=== PATIENT | female | born 1940 | race Two or more races ===

== ENCOUNTER 2016-11-10 17:35 | Emergency (ER) | payer MEDICARE, MEDICAID ==
[~2016-11-10] VITALS: Ht 152.4 cm; Wt 39.5 kg
[~2016-11-10 17:35] MED LIST: AMLO10TA2 PO; CIPR-173 PO; GABA300C PO; INSLANTI SC; LEVO175T31 PO; LOSA100T27 PO; METF-316 PO; POLYDRO7 OP; PRAV20TA3 PO
[2016-11-10] MEDS ORDERED: METO25TA62 PO (18:53)
[2016-11-10] MEDS ORDERED: BACL20TA PO (18:54)
[2016-11-10] MEDS ORDERED: SODIUM CHLORIDE 0.9% 1,000 ML IV ONE (19:45)
[2016-11-10 19:56] LABS: Basophils # (auto) 0 uL; Basophils % (auto) 0.3 % (0.0-2.0); Eosinophils # (auto) 0.1 uL; Eosinophils % (auto) 0.9 % (0.0-7.0); Hematocrit 39.8 % (36.0-46.0); Hemoglobin 12.9 g/dL (12.2-16.2); Lymphocytes # (auto) 2.1 uL; Lymphocytes % (auto) 23.1 % (10.0-50.0); Mean Corpuscular Hemoglobin 31.4 pg (28.0-32.0); Mean Corpuscular Hgb Conc. 32.4 g/dL (32.0-36.0); Mean Corpuscular Volume 96.9 fL (80.0-100.0); Monocytes # (auto) 0.6 uL; Monocytes % (auto) 5.9 % (0.0-12.0); Neutrophils # (auto) 6.5 uL; Neutrophils % (auto) 69.8 % (37.0-80.0); Platelet Count (auto) 287 10^3/uL (140-450); White Blood Cell 9.3 10^3/uL (4.4-10.8)
[2016-11-10 20:21] LABS: INR 1.04 (0.9-1.15); Partial Thromboplastin Time 25.2 sec (22.64-33.71); Prothrombin Time 11.2 sec (9.37-12.3)
[2016-11-10 20:23] LABS: Albumin 3.4 g/dL (3.4-5.0); Anion Gap 14 (5-15); Aspartate Aminotransferase 10 U/L (15-37); BUN/Creatinine Ratio 21.3; Blood Urea Nitrogen 27 mg/dL (7-18); Calcium 9.1 mg/dL (8.5-10.1); Carbon Dioxide 19 mmol/L (21-32); Chloride 105 mmol/L (98-107); GFR African American 52 mL/min; GFR Non-African American 43 mL/min; Glucose 223 mg/dL (74-106); Magnesium 1.9 mg/dL (1.6-2.6); Potassium 4.9 mmol/L (3.5-5.1); Sodium 138 mmol/L (136-145)
[2016-11-10 20:25] LABS: Alkaline Phosphatase 95 U/L (45-117); Bilirubin, Total 0.3 mg/dL (0.2-1.0); Total Protein 7.8 g/dL (6.4-8.2)
[2016-11-10 21:23] LABS: Urine Bilirubin Negative (Negative); Urine Blood Negative /uL (Negative); Urine Color Yellow (Yellow); Urine Ketone Negative (Negative); Urine Nitrite Negative (Negative); Urine RBC <1 /hpf (0 - 4); Urine Urobilinogen Normal (Negative)
[2016-11-10 21:27] LABS: Urine Glucose 1+ mg/dL (Normal)
[2016-11-10 22:06] LABS: B-Type Natriuretic Peptide 640.21 pg/mL (0-100); Temperature: 23.1 C (20.0-25.0)
[2016-11-10 23:50] VITALS: BP 149/70
== END 2016-11-11 00:01 | disposition home or self-care (01) ==
LOC: ER 17:37
DX: G45.9 Transient cerebral ischemic attack, unspecified (principal); R53.1 Weakness; I25.10 Atherosclerotic heart disease of native coronary artery without angina pectoris; R51 Headache; I11.0 Hypertensive heart disease with heart failure; I50.9 Heart failure, unspecified; E11.9 Type 2 diabetes mellitus without complications; E03.9 Hypothyroidism, unspecified; Z90.49 Acquired absence of other specified parts of digestive tract; E78.5 Hyperlipidemia, unspecified; Z95.0 Presence of cardiac pacemaker
CPT/HCPCS: 36415; 51702; 70450; 71010; 80053; 80320; 81001; 82010; 82962; 83735; 83880; 84484; 85025; 85379; 85610; 85730; 93005; 96360; 96361; 99285; J7030

== ENCOUNTER 2017-08-16 13:07 | Inpatient (IN) | payer MEDICARE, MEDICAID ==
[~2017-08-16] VITALS: Ht 152.4 cm; Wt 47.3 kg
[~2017-08-16 13:07] MED LIST changes: +BACL20TA PO; -METF-316 PO; +METF-372 PO; +METO25TA62 PO
[2017-08-16 13:59] LABS: Basophils # (auto) 0 uL; Basophils % (auto) 0.4 % (0.0-2.0); Eosinophils # (auto) 0 uL; Eosinophils % (auto) 0.1 % (0.0-7.0); Hematocrit 39.1 % (36.0-46.0); Hemoglobin 12.8 g/dL (12.2-16.2); Lymphocytes % (auto) 17.1 % (10.0-50.0); Mean Corpuscular Hemoglobin 30.9 pg (28.0-32.0); Mean Corpuscular Hgb Conc. 32.9 g/dL (32.0-36.0); Mean Corpuscular Volume 93.9 fL (80.0-100.0); Monocytes # (auto) 0.3 uL; Neutrophils # (auto) 4.3 uL; Neutrophils % (auto) 76.4 % (37.0-80.0); Nucleated Red Blood Cells % 0.2 %; Platelet Count (auto) 259 10^3/uL (140-450); Red Blood Cells 4.16 10^6/uL (4.0-5.20); Red Cell Distribution Width 15.8 % (11.8-14.3); White Blood Cell 5.7 10^3/uL (4.4-10.8)
[2017-08-16 15:08] LABS: Albumin 3.1 g/dL (3.4-5.0); Anion Gap 21 (5-15); Calcium 8.2 mg/dL (8.5-10.1); Carbon Dioxide 14 mmol/L (21-32); Chloride 99 mmol/L (98-107); Glucose 144 mg/dL (74-106); Sodium 134 mmol/L (136-145)
[2017-08-16 15:20] LABS: Alanine Aminotransferase 40 U/L (13-56); Alkaline Phosphatase 112 U/L (45-117); Aspartate Aminotransferase 22 U/L (15-37); BUN/Creatinine Ratio 14.1; Bilirubin, Total 0.3 mg/dL (0.2-1.0); GFR African American 9 mL/min; GFR Non-African American 7 mL/min; Total Protein 7.3 g/dL (6.4-8.2)
[2017-08-16 15:22] LABS: Lactic Acid w/Reflex 7.6 mmol/L (0.4-2.0)
[2017-08-16 15:45] LABS: Blood Urea Nitrogen 86 mg/dL (7-18); Potassium 5.9 mmol/L (3.5-5.1)
[2017-08-16] MEDS ORDERED: SODIUM BICARBONATE 8.4% INJ 50ML SYRINGE IV ONE (16:00)
[2017-08-16] MEDS ORDERED: InsuLIN REG 1unit/0.01ml Soln (100units/ml) IV ONE (16:00)
[2017-08-16] MEDS ORDERED: FUROSEMIDE 20 MG/2 ML VIAL IV ONE (16:00)
[2017-08-16] MEDS ORDERED: DEXTROSE (50%) 50ML SYRG IV ONE (16:00)
[2017-08-16] MEDS ORDERED: CALCIUM GLUC 4.65meq/50ml D5AE 50 ML IV ONE (16:00)
[2017-08-16] MEDS ORDERED: SODIUM CHLORIDE 0.9% 1,000 ML IV ONE ×3 (16:36→17:00)
[2017-08-16] MEDS ORDERED: MORPHINE SULFATE 10 MG/ML INJ 1ML SDV IV PRN ×2 (17:00)
[2017-08-16] MEDS: InsuLIN REG 1unit/0.01ml Soln (100units/ml) SC SCH ×2 (17:00→23:02)
[2017-08-16] MEDS ORDERED: OSELTAMIVIR 75 MG CAP PO ONE (17:00)
[2017-08-16] MEDS: ACCU-CHEK COMFORT CURVE STRIP VI SCH ×2 (17:00→22:42)
[2017-08-16] MEDS ORDERED: DEXTROSE (50%) 50ML SYRG IV PRN (17:00)
[2017-08-16] MEDS ORDERED: LORazepam 0.5 MG TAB PO PRN (17:00)
[2017-08-16] MEDS ORDERED: NITROGLYCERIN 0.4 MG SL TAB SL PRN (17:00)
[2017-08-16 17:25] LABS: Urine Amorphous Crystal FEW /hpf (None Seen); Urine Bacteria NONE SEEN /hpf (None Seen); Urine Blood TRACE /uL (Negative); Urine Hyaline Cast FEW /lpf (0 - 2); Urine Specific Gravity 1.017 (1.001-1.035); Urine WBC 1 /hpf (0 - 5)
[2017-08-16] MEDS ORDERED: SODIUM BICARBONATE 8.4 % INJ 50ML VIAL IV ONE (17:30)
[2017-08-16] MEDS ORDERED: ALBUTEROL SULF 2.5 MG/0.5ML(0.5%) NEB SOLN NEB ONE (17:30)
[2017-08-16] MEDS: metroNIDAZOLE 500MG/100ML 100 ML IV SCH (17:32)
[2017-08-16] MEDS: PROMETHAZINE HCL 25 MG/ML 1ML IV PRN (17:44)
[2017-08-16] MEDS ORDERED: PANTOPRAZOLE 40 MG TAB PO ONE (17:45)
[2017-08-16] MEDS ORDERED: ARTIFICIAL TEARS 15ml OP PRN (18:00)
[2017-08-16] MEDS: DOXYCYCLINE HYC 100MG/250ML 250 ML IV SCH (18:35)
[2017-08-16] MEDS: SODIUM CHLORIDE 0.9% 1,000 ML IV SCH (19:43)
[2017-08-16] MEDS: PRAVASTATIN SODIUM 20 MG TAB PO SCH (19:58)
[2017-08-16 20:41] LABS: INR 1.05 (0.9-1.15); Prothrombin Time 11.4 sec (9.37-12.3)
[2017-08-16 20:47] LABS: BUN/Creatinine Ratio 14.2; Calcium 7.8 mg/dL (8.5-10.1); Potassium 4.3 mmol/L (3.5-5.1)
[2017-08-16 21:33] LABS: CRP High Sensitivity 1.69 mg/dL (< 0.3)
[2017-08-16 21:55] VITALS: BP 144/91
[2017-08-16] MEDS ORDERED: OSELTAMIVIR 75 MG CAP PO SCH (22:00)
[2017-08-16] MEDS: GABAPENTIN 100 MG CAP PO SCH (22:42)
[2017-08-17] MEDS: metroNIDAZOLE 500MG/100ML 100 ML IV SCH ×2 (00:08→07:26)
[2017-08-17 01:03] VITALS: BP 144/91
[2017-08-17] MEDS: SODIUM CHLORIDE 0.9% 1,000 ML IV SCH (02:46)
[2017-08-17 05:00] VITALS: BP 113/44
[2017-08-17] MEDS: DOXYCYCLINE HYC 100MG/250ML 250 ML IV SCH (05:04)
[2017-08-17] MEDS: PROMETHAZINE HCL 25 MG/ML 1ML IV PRN ×2 (05:55→11:40)
[2017-08-17] MEDS: LEVOTHYROXINE SODIUM 50 MCG TAB PO SCH (06:30)
[2017-08-17] MEDS: ACCU-CHEK COMFORT CURVE STRIP VI SCH ×4 (06:30→22:16)
[2017-08-17] MEDS: InsuLIN REG 1unit/0.01ml Soln (100units/ml) SC SCH ×4 (06:31→22:32)
[2017-08-17 06:40] LABS: Basophils # (auto) 0 uL; Basophils % (auto) 0.1 % (0.0-2.0); Eosinophils # (auto) 0 uL; Hemoglobin 11.6 g/dL (12.2-16.2); Lymphocytes # (auto) 0.5 uL; Lymphocytes % (auto) 5.6 % (10.0-50.0); Mean Corpuscular Hemoglobin 30.8 pg (28.0-32.0); Mean Corpuscular Hgb Conc. 32.3 g/dL (32.0-36.0); Mean Corpuscular Volume 95.4 fL (80.0-100.0); Monocytes # (auto) 0.7 uL; Monocytes % (auto) 7.2 % (0.0-12.0); Neutrophils # (auto) 8.6 uL; Neutrophils % (auto) 87.1 % (37.0-80.0); Nucleated Red Blood Cells % 0.2 %; Platelet Count (auto) 239 10^3/uL (140-450); Red Blood Cells 3.78 10^6/uL (4.0-5.20); Red Cell Distribution Width 15.7 % (11.8-14.3); White Blood Cell 9.8 10^3/uL (4.4-10.8)
[2017-08-17 07:01] LABS: Potassium 4.8 mmol/L (3.5-5.1)
[2017-08-17 07:02] LABS: Albumin 2.7 g/dL (3.4-5.0); BUN/Creatinine Ratio 13.7; Bilirubin, Total 0.3 mg/dL (0.2-1.0); Calcium 7.6 mg/dL (8.5-10.1); Total Protein 6.8 g/dL (6.4-8.2)
[2017-08-17 07:03] LABS: Cholesterol 106 mg/dL (< 200); HDL Cholesterol 29 mg/dL (40-59); LDL Cholesterol 57 mg/dL (< 100); Triglycerides 191 mg/dL (< 150)
[2017-08-17] MEDS: ALBUTEROL SULF 2.5 MG/0.5ML(0.5%) NEB SOLN NEB PRN ×2 (07:50→22:31)
[2017-08-17 09:00] VITALS: BP 100/36
[2017-08-17] MEDS: GABAPENTIN 100 MG CAP PO SCH (10:05)
[2017-08-17] MEDS: PANTOPRAZOLE 40 MG TAB PO SCH (10:06)
[2017-08-17] MEDS: ENOXAPARIN SOD 30 MG/0.3 ML SYRINGE SC SCH (10:08)
[2017-08-17] MEDS: SODIUM BICARBONATE 50ML VIAL 100 ML in SOD CHL 0.45% 1,000 ML IV SCH ×2 (12:14→23:12)
[2017-08-17] MEDS: PIPERACILLIN-TAZOB 2.25GM 50 ML IV SCH ×2 (12:20→17:36)
[2017-08-17] MEDS: Novasource Renal 8 Ounces PO SCH ×2 (12:30→18:00)
[2017-08-17 12:43] LABS: Lactic Acid w/Reflex 6.6 mmol/L (0.4-2.0)
[2017-08-17 13:48] LABS: Albumin 2.5 g/dL (3.4-5.0); BUN/Creatinine Ratio 15.1; Bilirubin, Total 0.2 mg/dL (0.2-1.0); Calcium 7.2 mg/dL (8.5-10.1); Potassium 4.9 mmol/L (3.5-5.1); Total Protein 6.2 g/dL (6.4-8.2)
[2017-08-17 14:20] VITALS: BP 111/50
[2017-08-17] MEDS: LINEZOLID 600MG/300ML 300 ML IV SCH (15:35)
[2017-08-17 16:00] VITALS: BP 129/49
[2017-08-17] MEDS: PRAVASTATIN SODIUM 20 MG TAB PO SCH (17:30)
[2017-08-17 20:00] VITALS: BP 126/33
[2017-08-17] MEDS ORDERED: PIPERACILLIN-TAZOB 2.25GM 50 ML IV ONE (23:57)
[2017-08-18] VITALS: BP 122/49
[2017-08-18] MEDS: PIPERACILLIN-TAZOB 2.25GM 50 ML IV SCH ×4 (00:07→18:10)
[2017-08-18] MEDS: LINEZOLID 600MG/300ML 300 ML IV SCH ×2 (02:31→15:22)
[2017-08-18 03:00] VITALS: BP 127/50
[2017-08-18 05:23] LABS: Basophils # (auto) 0 uL; Basophils % (auto) 0.1 % (0.0-2.0); Eosinophils # (auto) 0 uL; Hematocrit 28.6 % (36.0-46.0); Hemoglobin 9.5 g/dL (12.2-16.2); Lymphocytes # (auto) 0.7 uL; Lymphocytes % (auto) 7.3 % (10.0-50.0); Mean Corpuscular Hemoglobin 30.7 pg (28.0-32.0); Mean Corpuscular Hgb Conc. 33.1 g/dL (32.0-36.0); Mean Corpuscular Volume 92.7 fL (80.0-100.0); Monocytes # (auto) 0.8 uL; Monocytes % (auto) 8.2 % (0.0-12.0); Neutrophils # (auto) 8.5 uL; Neutrophils % (auto) 84.4 % (37.0-80.0); Platelet Count (auto) 202 10^3/uL (140-450); Red Blood Cells 3.08 10^6/uL (4.0-5.20); Red Cell Distribution Width 15.6 % (11.8-14.3); White Blood Cell 10.1 10^3/uL (4.4-10.8)
[2017-08-18 05:39] LABS: Albumin 2.2 g/dL (3.4-5.0); BUN/Creatinine Ratio 18.2; Bilirubin, Total 0.3 mg/dL (0.2-1.0); Calcium 7.1 mg/dL (8.5-10.1); Potassium 4.3 mmol/L (3.5-5.1); Total Protein 5.5 g/dL (6.4-8.2)
[2017-08-18] MEDS: LEVOTHYROXINE SODIUM 50 MCG TAB PO SCH (06:07)
[2017-08-18] MEDS: ACCU-CHEK COMFORT CURVE STRIP VI SCH ×4 (06:07→22:00)
[2017-08-18] MEDS: InsuLIN REG 1unit/0.01ml Soln (100units/ml) SC SCH ×4 (06:30→22:00)
[2017-08-18 08:00] VITALS: BP 126/53
[2017-08-18] MEDS: Novasource Renal 8 Ounces PO SCH ×3 (08:00→18:02)
[2017-08-18] MEDS: SODIUM BICARBONATE 50ML VIAL 100 ML in SOD CHL 0.45% 1,000 ML IV SCH ×3 (09:00→12:08)
[2017-08-18] MEDS: PANTOPRAZOLE 40 MG TAB PO SCH (10:13)
[2017-08-18] MEDS: ENOXAPARIN SOD 30 MG/0.3 ML SYRINGE SC SCH (10:13)
[2017-08-18 11:50] VITALS: BP 133/55
[2017-08-18] MEDS: SODIUM BICARBONATE 650 MG TAB PO SCH ×2 (12:15→22:40)
[2017-08-18 15:50] VITALS: BP 122/50
[2017-08-18 19:58] VITALS: BP 119/51
[2017-08-19] MEDS: PIPERACILLIN-TAZOB 2.25GM 50 ML IV SCH ×4 (00:06→17:30)
[2017-08-19] MEDS: LINEZOLID 600MG/300ML 300 ML IV SCH ×2 (03:39→15:00)
[2017-08-19] MEDS: ACETAMINOPHEN 500 MG TAB PO PRN ×2 (03:52→05:32)
[2017-08-19] MEDS: LEVOTHYROXINE SODIUM 50 MCG TAB PO SCH (05:42)
[2017-08-19] MEDS: SODIUM BICARBONATE 50ML VIAL 100 ML in SOD CHL 0.45% 1,000 ML IV SCH (05:43)
[2017-08-19] MEDS: ACCU-CHEK COMFORT CURVE STRIP VI SCH ×4 (06:23→22:00)
[2017-08-19] MEDS: InsuLIN REG 1unit/0.01ml Soln (100units/ml) SC SCH ×4 (06:23→22:00)
[2017-08-19 06:26] LABS: Basophils # (auto) 0 uL; Basophils % (auto) 0.1 % (0.0-2.0); Eosinophils # (auto) 0 uL; Eosinophils % (auto) 0.3 % (0.0-7.0); Hematocrit 26.3 % (36.0-46.0); Hemoglobin 9.2 g/dL (12.2-16.2); Lymphocytes # (auto) 1.7 uL; Lymphocytes % (auto) 16.7 % (10.0-50.0); Mean Corpuscular Hemoglobin 31.7 pg (28.0-32.0); Mean Corpuscular Volume 90.5 fL (80.0-100.0); Monocytes % (auto) 9.6 % (0.0-12.0); Neutrophils # (auto) 7.4 uL; Neutrophils % (auto) 73.3 % (37.0-80.0); Platelet Count (auto) 166 10^3/uL (140-450); Red Cell Distribution Width 15.4 % (11.8-14.3); White Blood Cell 10.1 10^3/uL (4.4-10.8)
[2017-08-19 06:47] LABS: BUN/Creatinine Ratio 20.1; Calcium 6.7 mg/dL (8.5-10.1); Potassium 3.1 mmol/L (3.5-5.1)
[2017-08-19] MEDS: Novasource Renal 8 Ounces PO SCH ×3 (08:00→18:00)
[2017-08-19 09:15] VITALS: BP 117/58
[2017-08-19] MEDS: PANTOPRAZOLE 40 MG TAB PO SCH (09:57)
[2017-08-19] MEDS: ENOXAPARIN SOD 30 MG/0.3 ML SYRINGE SC SCH (09:57)
[2017-08-19] MEDS: SODIUM BICARBONATE 650 MG TAB PO SCH ×2 (09:57→22:00)
[2017-08-19 12:00] VITALS: BP 122/52
[2017-08-19 15:58] VITALS: BP 123/57
[2017-08-19 20:00] VITALS: BP 134/64
[2017-08-20] VITALS: BP 132/58
[2017-08-20] MEDS: SODIUM BICARBONATE 50ML VIAL 100 ML in SOD CHL 0.45% 1,000 ML IV SCH (00:25)
[2017-08-20] MEDS: ACETYLCYSTEINE 20%(200MG/ML) SOL 4ML NEB SCH ×4 (00:28→18:00)
[2017-08-20] MEDS: IPRATROPIUM BROM 0.5 MG/2.5ML INH SOL NEB SCH ×5 (00:28→19:51)
[2017-08-20] MEDS: ALBUTEROL SULF 2.5 MG/0.5ML(0.5%) NEB SOLN NEB PRN (00:28)
[2017-08-20] MEDS: LINEZOLID 600MG/300ML 300 ML IV SCH ×2 (03:06→16:30)
[2017-08-20 04:00] VITALS: BP 123/53
[2017-08-20 05:37] LABS: Albumin 1.9 g/dL (3.4-5.0); BUN/Creatinine Ratio 19.1; Calcium 6.2 mg/dL (8.5-10.1)
[2017-08-20 05:39] LABS: Bilirubin, Total 0.4 mg/dL (0.2-1.0); Total Protein 5.3 g/dL (6.4-8.2)
[2017-08-20 05:41] LABS: Potassium 2.6 mmol/L (3.5-5.1)
[2017-08-20] MEDS ORDERED: SOD CHL 0.45% 1,000 ML IV SCH (06:00)
[2017-08-20] MEDS ORDERED: POTASSIUM CHL 10% (20 MEQ/15ML) 15ml ORAL SOLN ONE (06:33)
[2017-08-20] MEDS: PIPERACILLIN-TAZOB 2.25GM 50 ML IV SCH ×2 (06:44)
[2017-08-20] MEDS: LEVOTHYROXINE SODIUM 50 MCG TAB PO SCH (06:53)
[2017-08-20] MEDS: POTASSIUM CHL 10% (20 MEQ/15ML) 15ml ORAL SOLN GT SCH ×2 (06:53→09:31)
[2017-08-20] MEDS: ACCU-CHEK COMFORT CURVE STRIP VI SCH ×4 (07:16→22:00)
[2017-08-20] MEDS: InsuLIN REG 1unit/0.01ml Soln (100units/ml) SC SCH ×4 (07:53→22:00)
[2017-08-20 08:00] VITALS: BP 142/57
[2017-08-20 08:20] VITALS: BP 123/53
[2017-08-20] MEDS: Novasource Renal 8 Ounces PO SCH ×3 (09:24→18:00)
[2017-08-20] MEDS: SODIUM BICARBONATE 650 MG TAB PO SCH (09:30)
[2017-08-20] MEDS: ENOXAPARIN SOD 30 MG/0.3 ML SYRINGE SC SCH (09:31)
[2017-08-20] MEDS: PANTOPRAZOLE 40 MG TAB PO SCH (09:31)
[2017-08-20] MEDS: SOD CHL 0.45% 1,000 ML IV SCH (11:00)
[2017-08-20] MEDS ORDERED: ASPirin 81 mg TAB PO ONE (11:00)
[2017-08-20] MEDS ORDERED: guaiFENesin 200 MG/10 ML UD PO PRN (11:00)
[2017-08-20] MEDS: cefTRIAXone 1GM/10ml IVPUSH 10 ML IV SCH (11:48)
[2017-08-20 11:55] VITALS: BP 122/63
[2017-08-20 14:57] LABS: BUN/Creatinine Ratio 18.5; Calcium 6.2 mg/dL (8.5-10.1); Potassium 3.2 mmol/L (3.5-5.1)
[2017-08-20 15:51] VITALS: BP 131/65
[2017-08-20] MEDS: PRAVASTATIN SODIUM 20 MG TAB PO SCH (22:14)
[2017-08-20] MEDS: TEMAZEPAM 15 MG CAP PO PRN (22:14)
[2017-08-21] MEDS: IPRATROPIUM BROM 0.5 MG/2.5ML INH SOL NEB SCH ×4 (00:25→19:54)
[2017-08-21] MEDS: ACETYLCYSTEINE 20%(200MG/ML) SOL 4ML NEB SCH ×4 (00:26→19:55)
[2017-08-21] MEDS: LINEZOLID 600MG/300ML 300 ML IV SCH ×2 (03:09→15:03)
[2017-08-21 04:52] VITALS: BP 114/67
[2017-08-21 05:29] LABS: Basophils # (auto) 0 uL; Basophils % (auto) 0.1 % (0.0-2.0); Eosinophils # (auto) 0 uL; Eosinophils % (auto) 0.5 % (0.0-7.0); Hematocrit 25.1 % (36.0-46.0); Hemoglobin 8.5 g/dL (12.2-16.2); Lymphocytes # (auto) 1.6 uL; Lymphocytes % (auto) 15.9 % (10.0-50.0); Mean Corpuscular Hemoglobin 31.2 pg (28.0-32.0); Mean Corpuscular Hgb Conc. 33.9 g/dL (32.0-36.0); Mean Corpuscular Volume 92.2 fL (80.0-100.0); Monocytes # (auto) 0.8 uL; Monocytes % (auto) 8.5 % (0.0-12.0); Neutrophils # (auto) 7.5 uL; Nucleated Red Blood Cells % 0.1 %; Platelet Count (auto) 155 10^3/uL (140-450); Red Blood Cells 2.72 10^6/uL (4.0-5.20); Red Cell Distribution Width 14.6 % (11.8-14.3); White Blood Cell 9.9 10^3/uL (4.4-10.8)
[2017-08-21 05:58] LABS: BUN/Creatinine Ratio 18.4; Calcium 6.1 mg/dL (8.5-10.1)
[2017-08-21] MEDS: SOD CHL 0.45% 1,000 ML IV SCH (06:01)
[2017-08-21] MEDS: LEVOTHYROXINE SODIUM 50 MCG TAB PO SCH (06:02)
[2017-08-21] MEDS: ACCU-CHEK COMFORT CURVE STRIP VI SCH ×4 (06:02→21:36)
[2017-08-21] MEDS: InsuLIN REG 1unit/0.01ml Soln (100units/ml) SC SCH ×4 (06:02→21:36)
[2017-08-21] MEDS: ALBUTEROL SULF 2.5 MG/0.5ML(0.5%) NEB SOLN NEB PRN (07:25)
[2017-08-21] MEDS: Novasource Renal 8 Ounces PO SCH ×3 (08:52→17:45)
[2017-08-21] MEDS: cefTRIAXone 1GM/10ml IVPUSH 10 ML IV SCH (08:52)
[2017-08-21] MEDS: PANTOPRAZOLE 40 MG TAB PO SCH (08:53)
[2017-08-21] MEDS: ASPirin 81 mg TAB PO SCH (08:53)
[2017-08-21] MEDS: ENOXAPARIN SOD 30 MG/0.3 ML SYRINGE SC SCH (08:53)
[2017-08-21] MEDS: ACETAMINOPHEN 500 MG TAB PO PRN (08:59)
[2017-08-21 09:00] VITALS: BP 150/63
[2017-08-21 13:00] VITALS: BP 132/63
[2017-08-21] MEDS: HYDROcodone-ACET 5/325MG TAB PO PRN ×2 (13:47→21:35)
[2017-08-21] MEDS ORDERED: POTASSIUM CHL 10% (20 MEQ/15ML) 15ml ORAL SOLN PO ONE (15:15)
[2017-08-21 17:50] VITALS: BP 150/69
[2017-08-21] MEDS: PRAVASTATIN SODIUM 20 MG TAB PO SCH (21:35)
[2017-08-21] MEDS: TEMAZEPAM 15 MG CAP PO PRN (21:36)
[2017-08-21 22:00] VITALS: BP 153/68
[2017-08-22] MEDS: LINEZOLID 600MG/300ML 300 ML IV SCH (03:26)
[2017-08-22] MEDS: InsuLIN REG 1unit/0.01ml Soln (100units/ml) SC SCH ×5 (05:47→22:00)
[2017-08-22] MEDS: ACCU-CHEK COMFORT CURVE STRIP VI SCH ×5 (05:47→22:34)
[2017-08-22] MEDS: LEVOTHYROXINE SODIUM 50 MCG TAB PO SCH (05:48)
[2017-08-22 06:00] VITALS: BP 141/70
[2017-08-22] MEDS: HYDROcodone-ACET 5/325MG TAB PO PRN ×2 (06:44→16:27)
[2017-08-22] MEDS: ACETYLCYSTEINE 20%(200MG/ML) SOL 4ML NEB SCH ×3 (07:12→19:41)
[2017-08-22] MEDS: IPRATROPIUM BROM 0.5 MG/2.5ML INH SOL NEB SCH ×3 (07:16→19:41)
[2017-08-22 07:51] LABS: BUN/Creatinine Ratio 17.5
[2017-08-22 07:53] LABS: Potassium 2.8 mmol/L (3.5-5.1)
[2017-08-22 07:54] LABS: Calcium 5.7 mg/dL (8.5-10.1)
[2017-08-22] MEDS ORDERED: POTASSIUM CHL 20 Meq TABLET PO ONE (08:15)
[2017-08-22] MEDS ORDERED: CALCIUM GLUC 4.65meq/50ml D5AE 50 ML IV ONE (08:15)
[2017-08-22] MEDS ORDERED: POTASSIUM CHL 10% (20 MEQ/15ML) 15ml ORAL SOLN PO ONE (08:30)
[2017-08-22 09:00] VITALS: BP 146/70
[2017-08-22] MEDS ORDERED: POTASSIUM CHL 10% (20 MEQ/15ML) 15ml ORAL SOLN ONE (09:30)
[2017-08-22] MEDS: cefTRIAXone 1GM/10ml IVPUSH 10 ML IV SCH (09:50)
[2017-08-22] MEDS: ENOXAPARIN SOD 30 MG/0.3 ML SYRINGE SC SCH (09:51)
[2017-08-22] MEDS: PANTOPRAZOLE 40 MG TAB PO SCH (09:51)
[2017-08-22] MEDS: ASPirin 81 mg TAB PO SCH (09:52)
[2017-08-22] MEDS: Novasource Renal 8 Ounces PO SCH ×3 (10:06→18:15)
[2017-08-22] MEDS ORDERED: ACETYLCYSTEINE 10 %(100MG/ML) SOL 4ML ONE (12:25)
[2017-08-22 17:00] VITALS: BP 119/66
[2017-08-22 21:32] VITALS: BP 144/71
[2017-08-22] MEDS: PRAVASTATIN SODIUM 20 MG TAB PO SCH (22:34)
[2017-08-22] MEDS: LINEZOLID 600MG TABLET PO SCH (22:34)
[2017-08-22] MEDS: TEMAZEPAM 15 MG CAP PO PRN (23:52)
[2017-08-23] MEDS: IPRATROPIUM BROM 0.5 MG/2.5ML INH SOL NEB SCH ×4 (00:06→19:19)
[2017-08-23] MEDS: ACETYLCYSTEINE 20%(200MG/ML) SOL 4ML NEB SCH ×4 (00:06→19:19)
[2017-08-23 05:24] VITALS: BP 157/75
[2017-08-23 06:05] LABS: Basophils # (auto) 0 uL; Basophils % (auto) 0.1 % (0.0-2.0); Eosinophils # (auto) 0.1 uL; Eosinophils % (auto) 0.4 % (0.0-7.0); Hematocrit 27.8 % (36.0-46.0); Hemoglobin 9.5 g/dL (12.2-16.2); Lymphocytes # (auto) 1.5 uL; Lymphocytes % (auto) 11.6 % (10.0-50.0); Mean Corpuscular Hemoglobin 31.3 pg (28.0-32.0); Mean Corpuscular Volume 91.9 fL (80.0-100.0); Monocytes # (auto) 0.6 uL; Monocytes % (auto) 4.9 % (0.0-12.0); Neutrophils # (auto) 10.7 uL; Platelet Count (auto) 196 10^3/uL (140-450); Red Blood Cells 3.02 10^6/uL (4.0-5.20); Red Cell Distribution Width 14.9 % (11.8-14.3); White Blood Cell 12.9 10^3/uL (4.4-10.8)
[2017-08-23 06:16] LABS: Potassium 3.3 mmol/L (3.5-5.1)
[2017-08-23] MEDS: LEVOTHYROXINE SODIUM 50 MCG TAB PO SCH (06:18)
[2017-08-23] MEDS: ACCU-CHEK COMFORT CURVE STRIP VI SCH ×4 (06:19→21:33)
[2017-08-23 06:28] LABS: BUN/Creatinine Ratio 16.4; Calcium 6.1 mg/dL (8.5-10.1)
[2017-08-23] MEDS: InsuLIN REG 1unit/0.01ml Soln (100units/ml) SC SCH ×4 (06:32→21:34)
[2017-08-23] MEDS: Novasource Renal 8 Ounces PO SCH ×3 (08:00→18:15)
[2017-08-23 09:15] VITALS: BP 164/80
[2017-08-23] MEDS: HYDROcodone-ACET 5/325MG TAB PO PRN ×2 (09:21→18:33)
[2017-08-23] MEDS: cefTRIAXone 1GM/10ml IVPUSH 10 ML IV SCH (09:22)
[2017-08-23] MEDS: PANTOPRAZOLE 40 MG TAB PO SCH (09:22)
[2017-08-23] MEDS: LINEZOLID 600MG TABLET PO SCH (09:23)
[2017-08-23] MEDS: ENOXAPARIN SOD 30 MG/0.3 ML SYRINGE SC SCH (09:25)
[2017-08-23] MEDS: ASPirin 81 mg TAB PO SCH (09:26)
[2017-08-23 13:00] VITALS: BP 132/68
[2017-08-23] MEDS ORDERED: FUROSEMIDE 20 MG/2 ML VIAL IV ONE (13:00)
[2017-08-23] MEDS ORDERED: POTASSIUM CHL 20 Meq TABLET PO ONE (13:00)
[2017-08-23] MEDS: ceFAZolin 1GM/50ML 50 ML IV SCH ×2 (16:38→21:32)
[2017-08-23 17:00] VITALS: BP 151/73
[2017-08-23] MEDS: GABAPENTIN 300 MG CAP PO SCH (21:33)
[2017-08-23] MEDS: METOPROLOL TARTRATE 25 MG TAB PO SCH (21:33)
[2017-08-23] MEDS: PRAVASTATIN SODIUM 20 MG TAB PO SCH (21:33)
[2017-08-23 22:54] VITALS: BP 144/69
[2017-08-24] MEDS: IPRATROPIUM BROM 0.5 MG/2.5ML INH SOL NEB SCH ×4 (00:35→17:36)
[2017-08-24] MEDS: ACETYLCYSTEINE 20%(200MG/ML) SOL 4ML NEB SCH ×4 (00:35→17:36)
[2017-08-24 02:56] VITALS: BP 144/69
[2017-08-24 05:48] VITALS: BP 135/71
[2017-08-24] MEDS: ACCU-CHEK COMFORT CURVE STRIP VI SCH ×3 (06:06→17:00)
[2017-08-24] MEDS: LEVOTHYROXINE SODIUM 50 MCG TAB PO SCH (06:06)
[2017-08-24] MEDS: InsuLIN REG 1unit/0.01ml Soln (100units/ml) SC SCH ×3 (06:06→17:32)
[2017-08-24] MEDS: ceFAZolin 1GM/50ML 50 ML IV SCH ×2 (06:06→16:15)
[2017-08-24 06:22] LABS: Basophils # (auto) 0 uL; Basophils % (auto) 0.1 % (0.0-2.0); Eosinophils # (auto) 0.1 uL; Eosinophils % (auto) 1.3 % (0.0-7.0); Hematocrit 26.9 % (36.0-46.0); Lymphocytes # (auto) 1.2 uL; Lymphocytes % (auto) 10.3 % (10.0-50.0); Mean Corpuscular Hgb Conc. 33.6 g/dL (32.0-36.0); Mean Corpuscular Volume 92.4 fL (80.0-100.0); Monocytes # (auto) 0.7 uL; Monocytes % (auto) 6.5 % (0.0-12.0); Neutrophils # (auto) 9.3 uL; Neutrophils % (auto) 81.8 % (37.0-80.0); Platelet Count (auto) 228 10^3/uL (140-450); Red Blood Cells 2.91 10^6/uL (4.0-5.20); Red Cell Distribution Width 14.9 % (11.8-14.3); White Blood Cell 11.4 10^3/uL (4.4-10.8)
[2017-08-24 06:39] LABS: Potassium 3.4 mmol/L (3.5-5.1)
[2017-08-24 06:48] LABS: BUN/Creatinine Ratio 14.6
[2017-08-24 08:12] VITALS: BP 145/61
[2017-08-24] MEDS: Novasource Renal 8 Ounces PO SCH ×2 (10:27→12:26)
[2017-08-24] MEDS: ASPirin 81 mg TAB PO SCH (10:27)
[2017-08-24] MEDS: METOPROLOL TARTRATE 25 MG TAB PO SCH (10:28)
[2017-08-24] MEDS: PANTOPRAZOLE 40 MG TAB PO SCH (10:29)
[2017-08-24] MEDS: GABAPENTIN 300 MG CAP PO SCH (10:29)
[2017-08-24] MEDS: ENOXAPARIN SOD 30 MG/0.3 ML SYRINGE SC SCH (10:30)
[2017-08-24 11:41] VITALS: BP 147/69
[2017-08-24 15:00] VITALS: BP 147/69
[2017-08-24 16:17] VITALS: BP 143/65
== END 2017-08-24 18:00 | disposition hospice, home (50) | DRG 871 ==
LOC: ER 13:17 → TELE 13:18 → TELE-CENTR 21:51 → DOU IN ICU 08-17 14:44 → TELE-WESTW 08-20 17:51
PROVIDERS: ADMIT Internal Medicine; ATTEND Family Medicine
PROC: 0W9B3ZZ Drainage of Left Pleural Cavity, Percutaneous Approach (ICD-10-PCS; principal; 2017-08-20)
DX: A41.9 Sepsis, unspecified organism (principal); I21.4 Non-ST elevation (NSTEMI) myocardial infarction; N17.0 Acute kidney failure with tubular necrosis; J18.9 Pneumonia, unspecified organism; E44.0 Moderate protein-calorie malnutrition; E11.22 Type 2 diabetes mellitus with diabetic chronic kidney disease; E11.42 Type 2 diabetes mellitus with diabetic polyneuropathy; J90 Pleural effusion, not elsewhere classified; N18.6 End stage renal disease; I13.11 Hypertensive heart and chronic kidney disease without heart failure, with stage 5 chronic kidney disease, or end stage renal disease; E87.1 Hypo-osmolality and hyponatremia; J44.0 Chronic obstructive pulmonary disease with (acute) lower respiratory infection; L03.114 Cellulitis of left upper limb; E87.5 Hyperkalemia; T38.3X5A Adverse effect of insulin and oral hypoglycemic [antidiabetic] drugs, initial encounter; D64.9 Anemia, unspecified; E03.9 Hypothyroidism, unspecified; E78.5 Hyperlipidemia, unspecified; E87.6 Hypokalemia; F41.9 Anxiety disorder, unspecified; G47.00 Insomnia, unspecified; E86.0 Dehydration; R74.0 Nonspecific elevation of levels of transaminase and lactic acid dehydrogenase [LDH]; K44.9 Diaphragmatic hernia without obstruction or gangrene; F01.50 Vascular dementia, unspecified severity, without behavioral disturbance, psychotic disturbance, mood disturbance, and anxiety; I70.0 Atherosclerosis of aorta; Z51.5 Encounter for palliative care; H54.7 Unspecified visual loss; I25.10 Atherosclerotic heart disease of native coronary artery without angina pectoris; K21.9 Gastro-esophageal reflux disease without esophagitis; Z82.49 Family history of ischemic heart disease and other diseases of the circulatory system; Z83.3 Family history of diabetes mellitus; Z95.0 Presence of cardiac pacemaker; Z79.899 Other long term (current) drug therapy; Z90.49 Acquired absence of other specified parts of digestive tract; Z68.20 Body mass index [BMI] 20.0-20.9, adult
CPT/HCPCS: 36415; 36600; 70450; 71045; 74176; 76604; 76775; 76942; 80048; 80053; 80061; 81001; 82150; 82270; 82378; 82550; 82805; 82962; 83036; 83605; 83690; 84484; 85025; 85610; 85652; 86141; 87040; 87081; 87086; 87400; 87493; 93005; 93971; 94640; 94644; 96361; 96365; 96375; 97110; 97530; J0610; J0690; J1815; J2543; J3490

== ENCOUNTER 2019-10-18 15:34 | Inpatient (IN) | payer MEDICARE, MEDICAID ==
[~2019-10-18] VITALS: Ht 152.4 cm; Wt 49.0 kg
[~2019-10-18 15:34] MED LIST changes: +AMLO10TA13 PO; -AMLO10TA2 PO; -CIPR-173 PO; +LOSA-39 PO; -LOSA100T27 PO; -METO25TA62 PO; +METO25TA93 PO
[2019-10-18 16:57] LABS: Basophils # (auto) 0 10 ^3/uL (0-0.2); Basophils % (auto) 0.7 % (0.0-2.0); Eosinophils # (auto) 0.1 10 ^3/uL (0-0.8); Eosinophils % (auto) 1.5 % (0.0-7.0); Hematocrit 40.2 % (36.0-46.0); Hemoglobin 13.6 g/dL (12.2-16.2); Lymphocytes # (auto) 1.3 10 ^3/uL (0.4-5.4); Lymphocytes % (auto) 21.8 % (10.0-50.0); Mean Corpuscular Hemoglobin 32.1 pg (28.0-32.0); Mean Corpuscular Hgb Conc. 33.8 g/dL (32.0-36.0); Mean Corpuscular Volume 95.2 fL (80.0-100.0); Monocytes # (auto) 0.5 10 ^3/uL (0-1.3); Monocytes % (auto) 8.6 % (0.0-12.0); Neutrophils # (auto) 4.1 10 ^3/uL (1.6-8.6); Neutrophils % (auto) 67.4 % (37.0-80.0); Platelet Count (auto) 225 10^3/uL (140-450); Red Blood Cells 4.22 10^6/uL (4.0-5.20); Red Cell Distribution Width 14.5 % (11.8-14.3)
[2019-10-18 17:18] LABS: Albumin 3.1 g/dL (3.4-5.0); Calcium 8.3 mg/dL (8.5-10.1); Potassium 4.4 mmol/L (3.5-5.1)
[2019-10-18 17:24] LABS: BUN/Creatinine Ratio 21.3; Bilirubin, Total 0.3 mg/dL (0.2-1.0); Total Protein 7.7 g/dL (6.4-8.2)
[2019-10-18] MEDS ORDERED: SODIUM CHLORIDE 0.9% 1,000 ML IV ONE (17:41)
[2019-10-18] MEDS ORDERED: DEXTROSE (50%) 50ML SYRG IV PRN (19:30)
[2019-10-18] MEDS ORDERED: MORPHINE SULF INJ 2 MG/ML SYRINGE 1ML IV PRN ×2 (19:30)
[2019-10-18] MEDS ORDERED: DOCUSATE SOD 100 MG CAP PO PRN (19:30)
[2019-10-18] MEDS ORDERED: HYDROcodone-ACET 5/325MG TAB PO PRN (19:30)
[2019-10-18] MEDS ORDERED: ACETAMINOPHEN 500 MG TAB PO PRN (19:30)
[2019-10-18] MEDS ORDERED: ONDANSETRON HCL 4 MG/2 ML VIAL IV PRN (19:30)
[2019-10-18] MEDS ORDERED: NITROGLYCERIN 0.4 MG SL TAB SL PRN (19:30)
[2019-10-18 20:15] VITALS: BP 137/92
[2019-10-18] MEDS: GABAPENTIN 300 MG CAP PO SCH ×2 (20:24→20:26)
--- NOTE | 2019-10-18 20:26 | NUR ---
Telemetry admit from ER KELLIKARUNA admitted to Telemetry unit after SBAR received. Patient oriented to Montserrat Montgomery, primary RN, unit, room, bed, and unit policies regarding patient care and visiting hours. Patient now on continuous telemetry monitoring, tele box #55 and telemetry reading on arrival to unit is NSR 62. Patient placed on bedside oxygen, weighed by bedscale and encouraged to call if they need something. All questions and concerns addressed, patient verbalized understanding. Note:
--- NOTE | 2019-10-18 20:28 | NUR ---
NEURONTIN FOR 2199 AND 6AM ARE BEING HELD BECAUSE PT STATES IT MAKES HER DIZZY-AND AN ER NOTE FROM Sharon YANG STATED IT SHOULD BE HELD BECAUSE PT STATES IT IS MAKING HER DIZZY.
[2019-10-18 22:00] VITALS: BP 131/75
[2019-10-18] MEDS: ACCU-CHEK COMFORT CURVE STRIP VI SCH (22:00)
[2019-10-18] MEDS: InsuLIN REG 1unit/0.01ml Soln (100units/ml) SC SCH (22:00)
[2019-10-18 22:07] VITALS: BP 131/75
--- NOTE | 2019-10-18 22:17 | NUR ---
PATIENT UNABLE TO VERIFY MEDICATION LIST OF DOSAGE STRENGTH. WILL INFORM RN AND ATTEMPT TO OBTAIN CORRECT LIST IN AM.
--- NOTE | 2019-10-19 01:28 | NUR ---
PT UPSET THAT HER DAUGHTERS LEFT HER HERE. PT STATED THROUGH A SUPERVISOR CAB THAT SHE WANTS TO GO HOME IN THE AM.BED ALARM ON WITH FREQUENT NURSING CHECKS.
--- NOTE | 2019-10-19 04:44 | NUR ---
PT MOVED TO ROOM 286B WHICH HAS A SITTER.
[2019-10-19 05:00] VITALS: BP 140/75
[2019-10-19] MEDS: InsuLIN REG 1unit/0.01ml Soln (100units/ml) SC SCH ×4 (05:02→22:17)
[2019-10-19] MEDS: ACCU-CHEK COMFORT CURVE STRIP VI SCH ×4 (07:19→22:05)
--- NOTE | 2019-10-19 07:30 | NUR ---
Opening Shift Note Assumed care of patient, awake and alert. No S/S of distress/SOB or pain. Bed in lowest and locked position with side rails x2 and call light within reach. Instructed on POC and to call for assist PRN, will continue to monitor for changes Q1hr and PRN.
[2019-10-19 08:00] VITALS: BP 149/71
[2019-10-19 09:00] VITALS: BP 149/71
[2019-10-19 09:31] LABS: Basophils # (auto) 0.1 10 ^3/uL (0-0.2); Basophils % (auto) 1.2 % (0.0-2.0); Eosinophils # (auto) 0.2 10 ^3/uL (0-0.8); Eosinophils % (auto) 2.3 % (0.0-7.0); Hemoglobin 13.1 g/dL (12.2-16.2); Lymphocytes # (auto) 2.5 10 ^3/uL (0.4-5.4); Lymphocytes % (auto) 32.5 % (10.0-50.0); Mean Corpuscular Hemoglobin 31.2 pg (28.0-32.0); Mean Corpuscular Hgb Conc. 32.7 g/dL (32.0-36.0); Mean Corpuscular Volume 95.4 fL (80.0-100.0); Monocytes # (auto) 0.7 10 ^3/uL (0-1.3); Monocytes % (auto) 9.5 % (0.0-12.0); Neutrophils # (auto) 4.2 10 ^3/uL (1.6-8.6); Neutrophils % (auto) 54.5 % (37.0-80.0); Nucleated Red Blood Cells % 0.1 %; Platelet Count (auto) 197 10^3/uL (140-450); Red Blood Cells 4.19 10^6/uL (4.0-5.20); Red Cell Distribution Width 14.6 % (11.8-14.3); White Blood Cell 7.6 10^3/uL (4.4-10.8)
[2019-10-19 09:53] LABS: Albumin 2.8 g/dL (3.4-5.0); Calcium 8.3 mg/dL (8.5-10.1); Potassium 4.2 mmol/L (3.5-5.1)
[2019-10-19 09:59] LABS: Bilirubin, Total 0.4 mg/dL (0.2-1.0); Total Protein 7.1 g/dL (6.4-8.2)
--- NOTE | 2019-10-19 10:00 | NUR ---
WOUND CARE NOTE: IN TO SEE PATIENT AT THIS TIME PER WOUND CARE CONSULT REQUEST. PATIENT ADMITTED TO [facility] WITH DIAGNOSIS OF TIA/CVA. CURRENT BISHOP SCORE IS 12. PATIENT WAS NOTED UPON ADMIT TO HAVE SKIN INTEGRITY ISSUE TO THE SACRUM. WOUND PHOTOS TAKEN AT THAT TIME BY BEDSIDE NURSE FOR REFERENCE. PATIENT IS NOTED TO BE MAX ASSIST FOR HER ADL'S, SHE HAS A SITTER AT BEDSIDE. PATIENT IS VERY THIN, WEIGHING ONLY 49.8 KG. SHE HAS VERY PROMINENT BONY PROMINENCES. PATIENT HAS PINK COLLAGEN SCARS NOTED TO RIGHT/LEFT/MEDIAL SACRUM. SKIN INTACT, PINK. SKIN IS BLANCHABLE. SHE HAS AN OPTIFOAM GENTLE SACRAL DRESSING PREVENTATIVE IN PLACE. SPECIALTY AIR MATTRESS HAS BEEN ORDERED. PATIENT TO BE PLACED PENDING DELIVERY BY [facility]. NO OTHER SKIN ISSUES SEEN AT THIS TIME. RECOMMEND: FREQUENT TURN SCHEDULE Q 2 HOURS,PRN CONDITION PERMITS, WITH PRESSURE REDISTRIBUTION USING PILLOWS/WEDGES, BID/PRN APPLICATION WITH MOISTURE BARRIER CREAM, OPTIFOAM GENTLE SACRAL DRESSING, SPECIALTY AIR MATTRESS, DIETARY CONSULT FOR LOW BISHOP, SKIN/WOUND CARE PLAN, CONTINUED MONITORING BY WOUND CARE TEAM. Addendum: 10/19/19 at 1227 by Cynthia Rg RN Amended: Links added.
[2019-10-19] MEDS: ASPirin 81 mg TAB PO SCH (11:13)
[2019-10-19] MEDS: FAMOTIDINE 20 MG TAB PO SCH (11:13)
[2019-10-19] MEDS: METOPROLOL SUCCINATE XL 50 MG TAB PO SCH (11:14)
[2019-10-19 13:00] VITALS: BP 146/71
[2019-10-19] MEDS: GABAPENTIN 300 MG CAP PO SCH ×2 (13:44→22:05)
[2019-10-19 17:00] VITALS: BP 118/53
[2019-10-19] MEDS ORDERED: PRAVASTATIN SODIUM 20 MG TAB PO SCH (18:00)
--- NOTE | 2019-10-19 19:25 | NUR ---
Opening Shift Note Assumed care of patient, awake and alert. No S/S of distress/SOB or pain. Instructed on POC and to call for assist PRN, will continue to monitor for changes Q1hr and PRN. PATIENT RESTING IN BED SITTER AT BEDSIDE, BED IN LOWEST POSITION, SIDE RALES UP X2, AND CALL LIGHT WITHIN REACH.
[2019-10-19 20:30] VITALS: BP 107/52
[2019-10-19] MEDS: ATORVASTATIN 20 MG TAB PO SCH (22:05)
[2019-10-20 05:00] VITALS: BP 126/60
[2019-10-20] MEDS: GABAPENTIN 300 MG CAP PO SCH ×3 (05:52→22:35)
[2019-10-20] MEDS: InsuLIN REG 1unit/0.01ml Soln (100units/ml) SC SCH ×4 (06:44→22:36)
[2019-10-20] MEDS: LEVOTHYROXINE SODIUM 112 MCG TAB PO SCH (06:44)
[2019-10-20] MEDS: ACCU-CHEK COMFORT CURVE STRIP VI SCH ×4 (06:44→22:00)
[2019-10-20 06:53] LABS: Folate (Folic Acid) > 24.00 ng/mL (5.38-24)
--- NOTE | 2019-10-20 07:04 | NUR ---
Opening Shift Note: Assumed care of patient, awake and alert x3. No S/S of distress/SOB or pain. Bed in lowest locked position, side rails up x 2, call light within reach. Patient instructed on POC and to call for assist PRN, will continue to monitor for changes Q1hr and PRN. Addendum: 10/20/19 at 1036 by KALLI ORDONEZ RN RN Sitter at bedside for patient safety
--- NOTE | 2019-10-20 08:14 | NUR ---
PER DR. GARCIA REQUEST FAMILY IS CALLED AND UPDATED ON POC.
[2019-10-20 09:00] VITALS: BP 122/54
--- NOTE | 2019-10-20 09:45 | NUR ---
PATIENT IS TURNED AT THIS TIME. WILL CONTINUE TO MONITOR.
[2019-10-20] MEDS: METOPROLOL SUCCINATE XL 50 MG TAB PO SCH (09:55)
[2019-10-20] MEDS: FAMOTIDINE 20 MG TAB PO SCH (09:55)
[2019-10-20] MEDS: ASPirin 81 mg TAB PO SCH (09:55)
[2019-10-20 13:00] VITALS: BP 126/65
--- NOTE | 2019-10-20 13:31 | NUR ---
PATIENT IS TURNED AND CHANGED AT THIS TIME.
--- NOTE | 2019-10-20 13:34 | NUR ---
DR. MCDONALD: DR. KOENIG AT BEDSIDE. DISCUSSED POC WITH PATIENT.
--- NOTE | 2019-10-20 13:35 | NUR ---
NUTRITION ASSESSMENT NOTES Please refer to link notes of nutrition screen form filed under the intervention section of the plan of care for further details. Est. Energy Needs: 0556-6520 kcal ( 25-30 kcal/kg BW). Est. Protein Needs: 60-76 gms/day ( 1.2-1.5 gms/kg BW). Will continue to monitor pertinent labs and reassess nutrient need prn Addendum: 10/20/19 at [address] Amended: Links added.
--- NOTE | 2019-10-20 13:45 | NUR ---
PATIENT OFF UNIT FOR CT SCAN
--- NOTE | 2019-10-20 14:15 | NUR ---
PATIENT BACK TO ROOM. NO S/S OF PAIN OR DISTRESS NOTED.
[2019-10-20 18:19] VITALS: BP 139/66
[2019-10-20] MEDS: Glucerna Carbsteady SHAKE Vanilla 8oz PO SCH (18:32)
--- NOTE | 2019-10-20 19:04 | NUR ---
CLOSING NOTE: PATIENT RESTING IN BED. NO S/S OF PAIN, SOB OR DISTRESS AT THIS TIME. FAMILY AT BEDSIDE. SITTER AT BEDSIDE FOR PATIENT SAFETY. CARE ENDORSED TO NOC RN.
--- NOTE | 2019-10-20 19:20 | NUR ---
Opening Shift Note Assumed care of patient, awake and alert. No S/S of distress/SOB or pain. Instructed on POC and to call for assist PRN, will continue to monitor for changes Q1hr and PRN. PATIENT RESTING IN BED, FAMILY AND SITTER AT BEDSIDE, BED IN LOWEST POSITION, SIDE RALES UP X2, CALL LIGHT AT HER SIDE WITHIN REACH.
--- NOTE | 2019-10-20 19:25 | NUR ---
PT FAMILY REQUESTING DNR STATUS GRANDSON REQUESTING DNR SAYING THAT HIS MOTHER AND AUNT WOULD LIKE TO PLACE PATIENT ON DNR STATUS. I INFORMED FAMILY I WILL PUT IN A CONSULT ORDER FOR FURTHER INFORMATION PATIENTS DAUGHTERS CAN BE CONTACTED AT [phone] (KOBE) AND [phone] (MICHAEL).
[2019-10-20 20:15] VITALS: BP 136/68
[2019-10-20 22:00] VITALS: BP 139/68
[2019-10-20] MEDS: ATORVASTATIN 20 MG TAB PO SCH (22:35)
[2019-10-21 05:45] LABS: Basophils # (auto) 0.1 10 ^3/uL (0-0.2); Basophils % (auto) 0.9 % (0.0-2.0); Eosinophils # (auto) 0.2 10 ^3/uL (0-0.8); Eosinophils % (auto) 3.3 % (0.0-7.0); Hematocrit 40.4 % (36.0-46.0); Hemoglobin 13.6 g/dL (12.2-16.2); Lymphocytes # (auto) 1.7 10 ^3/uL (0.4-5.4); Lymphocytes % (auto) 25.4 % (10.0-50.0); Mean Corpuscular Hemoglobin 32.2 pg (28.0-32.0); Mean Corpuscular Hgb Conc. 33.7 g/dL (32.0-36.0); Mean Corpuscular Volume 95.5 fL (80.0-100.0); Monocytes # (auto) 0.6 10 ^3/uL (0-1.3); Monocytes % (auto) 9.7 % (0.0-12.0); Neutrophils % (auto) 60.7 % (37.0-80.0); Nucleated Red Blood Cells % 0.1 %; Platelet Count (auto) 188 10^3/uL (140-450); Red Blood Cells 4.23 10^6/uL (4.0-5.20); Red Cell Distribution Width 14.8 % (11.8-14.3); White Blood Cell 6.7 10^3/uL (4.4-10.8)
[2019-10-21 05:53] LABS: INR 1.07 (0.9-1.15)
[2019-10-21 05:58] LABS: Anion Gap 2 (5-15); Blood Urea Nitrogen 26 mg/dL (7-18); Calcium 8.3 mg/dL (8.5-10.1); Carbon Dioxide 28 mmol/L (21-32); Chloride 110 mmol/L (98-107); Glucose 97 mg/dL (74-106); Potassium 4.6 mmol/L (3.5-5.1); Sodium 140 mmol/L (136-145)
[2019-10-21 06:00] VITALS: BP 118/43
[2019-10-21 06:03] LABS: GFR African American 51 mL/min; GFR Non-African American 42 mL/min
[2019-10-21] MEDS: GABAPENTIN 300 MG CAP PO SCH ×2 (06:25→13:29)
[2019-10-21] MEDS: LEVOTHYROXINE SODIUM 112 MCG TAB PO SCH (06:25)
[2019-10-21] MEDS: InsuLIN REG 1unit/0.01ml Soln (100units/ml) SC SCH ×3 (07:00→17:45)
[2019-10-21] MEDS: ACCU-CHEK COMFORT CURVE STRIP VI SCH ×3 (07:08→16:20)
--- NOTE | 2019-10-21 07:15 | NUR ---
Opening Shift Note REceived report from Rianna ARNOLD. Assumed care of patient, asleep. No S/S of distress/SOB or pain. NOted sitter at bedside. Instructed on POC and to call for assist PRN, will continue to monitor for changes Q1hr and PRN.
[2019-10-21] MEDS: Glucerna Carbsteady SHAKE Vanilla 8oz PO SCH ×3 (07:42→17:44)
[2019-10-21 08:00] VITALS: BP 118/43
[2019-10-21 09:00] VITALS: BP 131/58
[2019-10-21] MEDS: FAMOTIDINE 20 MG TAB PO SCH (09:16)
[2019-10-21] MEDS: ASPirin 81 mg TAB PO SCH (09:16)
[2019-10-21] MEDS: METOPROLOL SUCCINATE XL 50 MG TAB PO SCH (09:17)
--- NOTE | 2019-10-21 09:51 | NUR ---
assessment Patient is a 79 year old female who is [place] speaking. Naz JULIENA translated for us. Prior to admission patient lived home with family and functioned with assistance. Per patient she has a wheelchair for home use. Patient has agreed to SNF placement. Per patients daughter Jessika she is requesting [facility] or [facility]. Patients PCP is Dr Xiong. Francisca STEELE will satisfy SNF order. I informed patient she has a right to speak to a social science research assistant regarding all care. I informed patient she has a right to participate in any and all discharge planning. Patient does not have a POA and advanced directive. I have offered patient information on POA and advanced directives. I informed the patient the advantages and benefits of having an Advanced Directive. Patient verbalized understanding and agreed to discharge plan. Addendum: 10/21/19 at 0959 by Ananya AREVALO Amended: Links added.
--- NOTE | 2019-10-21 11:14 | NUR ---
D/C Planning Per consult for SNF placement. Per SW II Ananya patient family requested [facility]. Faxed orders to facilities. Per Navdeep with [facility] Ph:( [phone]) patient has been accepted to room [address] accepting MD Dr. Arvizu. Spoke to patient daughter Jessika Ph:) regarding accepting facility. Jessika verbalize understanding d/c plan. Transportation will be arrange upon d/c day. CLAYTON Chaidez was informed.
[2019-10-21 13:00] VITALS: BP 119/58
--- NOTE | 2019-10-21 15:10 | NUR ---
CALLED RITU MYERS TO GIVE REPORT.
--- NOTE | 2019-10-21 15:25 | NUR ---
CALLED WIRE STITCHER OPERATOR DORIAN, WENT STRAIGHT TO [employer], LEFT A MESSAGE.
--- NOTE | 2019-10-21 15:25 | NUR ---
CALLED PATIENT'S DAUGHTER, KOBE. INFORMED ABOUT PATIENT GOING TO SNF AND SHE AGREED.
--- NOTE | 2019-10-21 15:30 | NUR ---
TOOK PICTURES OF SACRAL OF OLD PRESSURE SORE, APPLIED Z-GUARD, COVERED WITH OPTIFOAM. FILLED OUT WOUND CARE FORM.
--- NOTE | 2019-10-21 16:09 | NUR ---
D/C hay stacker Grace advised me doctor put in discharge orders. [facility] was informed. Transportation has been arrange at 18:30 via [facility] Ph:). CLAYTON Chaidez was informed.
[2019-10-21 17:00] VITALS: BP 143/72
--- NOTE | 2019-10-21 18:30 | NUR ---
IV removal IV DC'd with clean sterile technique, catheter fully intact. Pressure dressing applied to site. Patient tolerated well. REMOVED TELE BOX AND RETURNED. TRANSPORT NOT HERE YET. DISCHARGE INSTRUCTIONS GIVEN TO THE FAMILY AND PATIENT AND VERBALIZED UNDERSTANDING. ENDORSED TO NIGHT NURSE.
--- NOTE | 2019-10-21 19:38 | NUR ---
Discharge Transfers Patient is being transferred to [facility] ROOM 225B Patient is to follow up with accepting doctor at the receiving facility. PATIENT FAMILY AWARE AND AT BEDSIDE PRIOR TO TRANSPORT ([facility]) PICKUP, ID BANDS REMOVED, IV AND TELE DC/REMOVED.
== END 2019-10-21 19:38 | DRG 64 ==
LOC: ER 15:34 → TELE 15:35 → TELE-WESTW 20:34
PROVIDERS: ADMIT Nurse Practitioner Acute Care; ATTEND Internal Medicine
DX: I63.9 Cerebral infarction, unspecified (principal); N17.0 Acute kidney failure with tubular necrosis; E44.0 Moderate protein-calorie malnutrition; G81.91 Hemiplegia, unspecified affecting right dominant side; E11.65 Type 2 diabetes mellitus with hyperglycemia; H54.8 Legal blindness, as defined in USA; N18.3 Chronic kidney disease, stage 3 (moderate); R62.7 Adult failure to thrive; E11.319 Type 2 diabetes mellitus with unspecified diabetic retinopathy without macular edema; E03.9 Hypothyroidism, unspecified; E11.22 Type 2 diabetes mellitus with diabetic chronic kidney disease; I12.9 Hypertensive chronic kidney disease with stage 1 through stage 4 chronic kidney disease, or unspecified chronic kidney disease; F02.80 Dementia in other diseases classified elsewhere, unspecified severity, without behavioral disturbance, psychotic disturbance, mood disturbance, and anxiety; G30.9 Alzheimer's disease, unspecified; Z68.21 Body mass index [BMI] 21.0-21.9, adult; E78.5 Hyperlipidemia, unspecified; I25.10 Atherosclerotic heart disease of native coronary artery without angina pectoris; Z79.4 Long term (current) use of insulin; Z79.899 Other long term (current) drug therapy; Z82.49 Family history of ischemic heart disease and other diseases of the circulatory system; Z83.3 Family history of diabetes mellitus; Z95.0 Presence of cardiac pacemaker; Z90.49 Acquired absence of other specified parts of digestive tract
CPT/HCPCS: 36415; 70450; 71045; 80048; 80053; 82607; 82746; 82962; 83036; 83880; 84443; 84484; 85025; 85610; 87081; 93005; 93306; 96360; 96372; 97163; 97530; G0378; J1815; J2405